=== PATIENT | male | born 1950 | race Caucasian/White ===

== ENCOUNTER → 2017-01-01 | Day surgery (SDC) | payer OTHER ==
[2016-12-19 11:08] VITALS: Ht 167.6 cm; Wt 95.9 kg
[~2017-01-01] VITALS: Ht 167.6 cm; Wt 95.9 kg
[~2017-01-01] MED LIST: 500ML BSS 0.3ML EPI 1:1000PF IRRIG ONE; ACETAMINOPHEN 325 MG TAB PO PRN; AMVISC PLUS 0.8ML SYRINGE INT OCU ONE; ATROPINE SULFATE 0.1 MG/ML 5ML SYR IV PRN; BSS FLUSH ONE; ENDOCOAT 0.85ML SYRINGE INT OCU ONE; EpHEDrine SULFATE INJ 50 MG/ML AMP IV PRN; EpINEphrine INJ 1MG/ML AMP 1 MG/ML AMP ONE; LACTATED RINGER'S 1000ML 500 ML IV SCH; LEVO50TA6 PO; LIDOCAINE 4% OP SOLN DROP CHARGE ONE; LIDOCAINE 4% OP SOLN DROP CHARGE OPL SCH; LIDOCAINE HCL 1% MPF 2 ML VIAL ONE; MIDAZOLAM HCL 1 MG/ML 2ML VIAL ONE; MIX: 4ML BSS 1ML EPI 1:1000 PF TOP ONE; MOXIFLOXACIN OPH SOLN PER DROP CHARGE ONE; POVIDONE-IODINE OP SOLN 30 ML BTL ONE; PROPARACAINE 0.5% OP SOLN PER DROP CHARGE OPL SCH; TOBRAMYCIN/DEXAMETHASONE OPH OINT PER APPLN CHARGE ONE; VNTHFA/IN INH; ZNT/150 PO
--- NOTE | 2017-01-01 11:14 | History & Physical Bridge - [place] ---
H&P Re-Evaluation Bridge Note: I have examined the patient, reviewed the History & Physical and in the interval since the performance of the History & Physical I have noted the following changes of clinical significance: No changes noted
[2017-01-01] MEDS: PHENYLEPHRINE HCL 2.5% OP SOLN PER DROP CHARGE OPL SCH ×3 (11:16→11:26)
[2017-01-01] MEDS: TROPICAMIDE 1% OP SOLN PER DROP CHARGE OPL SCH ×3 (11:17→11:27)
[2017-01-01] MEDS: CYCLOPENTOLATE HCL 1% OP SOLN PER DROP CHARGE OPL SCH ×3 (11:18→11:28)
[2017-01-01] MEDS: MOXIFLOXACIN OPH SOLN PER DROP CHARGE OPL SCH ×3 (11:19→11:29)
--- NOTE | 2017-01-01 12:15 | [facility] Post Operative Brief Note ---
Immediate Operative Summary Operative Date Jan 01, 2017. Pre-Operative Diagnosis Cataract Left Eye Post-Operative Diagnosis Same Procedure(s) Performed Left Cataract Phacoemulsification With Intraocular Lens Implant Surgeon Dr. Hart [employer] Operator Surgeon(s) None Estimated Blood Loss 0 Findings left cataract Specimens None Complication(s) None Disposition
--- NOTE | 2017-01-01 12:16 | [facility] Operative Report ---
Operative Report Date of Service Jan 01, 2017. Operative Report Phaco with monofocal IOL DATE OF OPERATION: 01/01/17 PREOPERATIVE DIAGNOSIS: Senile nuclear cataract, left eye POSTOPERATIVE DIAGNOSIS: Senile nuclear cataract, left eye PROCEDURE PERFORMED: Phacoemulsification with intraocular lens implantation, left eye SURGEON: Dr. Benoit Hart ANESTHESIA: Topical with 1% intracameral lidocaine and monitored anesthesia care COMPLICATIONS: None DESCRIPTION OF PROCEDURE: After positively identifying the patient both verbally and by wristband in the preoperative area, the left eye was marked as the operative eye. The patient was then brought back to the operating room by the anesthesia and nursing staff where they were given a drop of Lidocaine and betadine into the operative eye. They were then sterilely prepped and draped in the standard fashion typical for ophthalmic surgery. Steri-strips were placed along the upper eyelids to keep the lashes back, and a lid speculum was placed into the operative eye. At this point, a documented time out was performed with members of the ophthalmology, nursing, and anesthesia staffs all agreeing upon the correct patient, correct location for surgery, correct procedure, and correct type and power of intraocular lens to be implanted. The microscope was then swung into position. First, a paracentesis wound was made using a sideport blade. Then, in sequence, 1% preservative-free lidocaine followed by Endocoat viscoelastic was injected into the anterior chamber. Next , the main incision was made with a keratome blade in triplanar fashion. A sharp cystotome was introduced into the eye and used to create a tear in the anterior capsule, which was directed into a continuous curvilinear capsulorrhexis using Utrata forceps. Hydrodissection was then performed with BSS on a flat-tip cannula. Next, the phacoemulsification handpiece was introduced into the eye and used to remove the nucleus in a eczopi-dzh-lfbywhs fashion. This was done without complication and then the irrigation-aspiration handpiece was introduced into the eye and used to remove all remaining cortical and epinuclear material. Amvisc was then injected into the anterior chamber as well as into the capsular bag and using the lens injector system, an MX60 21.0 D lens, serial number [id number], and expiration date 08/2019 was injected into the capsular bag and rotated into the correct position. Next, the irrigation- aspiration handpiece was used to remove all remaining Amvisc. BSS was used to hydrate the main wound, and then BSS was injected into the paracentesis site to reach physiologic pressure and then the main wound was checked and found to be watertight. The patient was given drops of Vigamox and Tobradex ointment into the operative eye, and then the surrounding area was cleaned and dried. A clear plastic shield was placed over the eye and the patient was then sat up and taken from the operating room by the anesthesia staff having tolerated the procedure well and suffering no complications. DISPOSITION: The patient was returned to the recovery room in stable condition. I attest to the content of the Intraoperative Record and any orders documented therein. Any exceptions are noted below.
--- NOTE | 2017-01-01 12:17 | Discharge Instructions-SurgCtr ---
Discharge Instructions Date of Service Jan 01, 2017. Visit Reason for Visit: Cataract Left Eye Discharge Discharge Diagnosis / Problem: left cataract Discharge Goals Goal(s): Decrease discomfort, Improve function Activity Recommendations Activity Limitations: as noted below Anesthesia . Post Anesthesia Instructions: If you have had General Anesthesia or IV Sedation: * Do not drive today. * Resume driving when surgeon permits. * Do not make important decisions or sign legal documents today. * Call surgeon for: 1. Temperature elevations greater than 101 degrees F. 2. Uncontrollable pain. 3. Excessive bleeding. 4. Persistent nausea and vomiting. 5. Medication intolerance (nausea, vomiting or rash). * For nausea and vomiting use only clear liquids such as: tea, soda, bouillon until nausea subsides, then gradually increase diet as tolerated. * If you have any concerns or questions, call your surgeon's office. If physician is unavailable and it is an emergency, call 911 or go to the nearest emergency room. . Instructions / Follow-Up Instructions / Follow-Up ACTIVITY RECOMMENDATIONS: * Light activities. * You may walk outside, read, watch television. * You may notice redness on the white part of the eye and some blurry vision - this is normal. MEDICATIONS: Resume previous medications unless instructed otherwise by your surgeon. Start all eye drops at 2:30 pm today: * Eye drops (today): Prednisone - one drop in operative eye every 2 hours while awake Ofloxacin - one drop in operative eye every 2 hours while awake Ketorolac - one drop in operative eye 4 times daily SPECIAL CARE INSTRUCTIONS: * Tape plastic shield over eye to sleep at night. Call your doctor at with any concerns or problems. FOLLOW UP VISIT: Follow-up with Dr Hart at [facility] as scheduled. Diet Recommendations Home Diet: no limitations Procedures Procedures Performed: Left Cataract Phacoemulsification With Intraocular Lens Implant Pending Studies Studies pending at discharge: no Medical Emergencies . Who to Call and When: Medical Emergencies: If at any time you feel your situation is an emergency, please call 911 immediately. . Non-Emergent Contact Non-Emergency issues call your: Surgeon . . "Provider Documentation" section prepared by Benoit Hart.
[2017-01-01 12:18] VITALS: TEMP 37.5
--- NOTE | 2017-01-01 12:30 | Anesthesia Progress Nt - [facility] ---
Anesthesia Post Op Note Date & Time Jan 01, 2017 at 12:30 Vital Signs Pain Intensity: 0 Vital Signs Past 12 Hours Date Time Temp Pulse Resp B/P Pulse Ox O2 Delivery O2 Flow Rate FiO2 01/01/17 12:18 37.5 80 14 134/83 96 Room Air 01/01/17 11:30 36.4 77 18 153/84 96 Room Air Notes Mental Status: alert / awake / arousable, participated in evaluation Pt Amnestic to Procedure: Yes Nausea / Vomiting: adequately controlled Pain: adequately controlled Airway Patency, RR, SpO2: stable & adequate BP & HR: stable & adequate Hydration State: stable & adequate Anesthetic Complications: no major complications apparent
[2017-01-01 12:37] VITALS: BP 148/95; PULSE 72; O2SAT 95
== END | disposition home or self-care (01) ==
LOC: X.SURG 10:52
PROVIDERS: ATTEND Ophthalmology
DX: H25.12 Age-related nuclear cataract, left eye (principal); E07.9 Disorder of thyroid, unspecified; Z87.891 Personal history of nicotine dependence

== ENCOUNTER 2017-12-17 06:25 | Inpatient (IN) | payer OTHER ==
[2017-11-18 13:46] VITALS: BMI 32.0
[2017-11-18 13:48] VITALS: Ht 167.6 cm; Wt 89.3 kg
--- NOTE | 2017-11-18 14:24 | PAT Medication Instructions ---
Service Date Nov 18, 2017. Current Home Medication List Albuterol Hfa (Ventolin Hfa), 2-4 PUFFS INH Q6H PRN for Shortness of Breath Donepezil Hydrochloride (Aricept), 1 TAB PO HS Esomeprazole Magnesium (Nexium), 20 MG PO QPM Levothyroxine Sodium (Levothyroxine Sodium), 1 TAB PO QAM Lisinopril (Prinivil), 20 MG PO QPM Umeclidinium-Vilanterol (Anoro Ellipta 62.5-25 Mcg/INH), 1 PUFF INH QAM Medication Instructions For Your Scheduled Surgery - Take the following medications the morning of surgery with a sip of water: Albuterol Hfa (Ventolin Hfa), 2-4 PUFFS INH Q6H PRN for Shortness of Breath (if needed, and bring it with you to the hospital) Levothyroxine Sodium (Levothyroxine Sodium), 1 TAB PO QAM Umeclidinium-Vilanterol (Anoro Ellipta 62.5-25 Mcg/INH), 1 PUFF INH QAM - Take the following medications as scheduled the night before surgery: Albuterol Hfa (Ventolin Hfa), 2-4 PUFFS INH Q6H PRN for Shortness of Breath (if needed) Donepezil Hydrochloride (Aricept), 1 TAB PO HS Esomeprazole Magnesium (Nexium), 20 MG PO QPM Lisinopril (Prinivil), 20 MG PO QPM If you have any questions please call us at [phone] or [phone] or [phone]
--- NOTE | 2017-11-18 15:00 | DIAGNOSTIC IMAGING REPORT ---
CHEST 2 VIEWS ROUTINE CLINICAL HISTORY: pat preoperative evaluation COMPARISON STUDY: 01/14/2006 FINDINGS: Mild chronic fibrotic change left base. No evidence for acute infiltrate. Diaphragms smooth. Costophrenic angles sharp. IMPRESSION: Chronic change left base. No acute process. The above report was generated using voice recognition software. It may contain grammatical, syntax or spelling errors. Electronically signed by: Toro Dacosta M.D. 11/18/2017 2:59 PM Dictated Date/Time: 11/18/2017 2:59 PM
[2017-11-18 15:59] LABS: BASO % 0.6 %; BASO ABS # 0.04 K/uL (0-0.2); EOS % 4.4 %; EOS ABS # 0.29 K/uL (0-0.5); HEMATOCRIT 38.6 % (42-52); HEMOGLOBIN 12.9 g/dL (14.0-18.0); IG# 0.02 K/uL (0.00-0.02); LYMPH % 22.9 %; LYMPH ABS # 1.51 K/uL (1.2-3.4); MEAN CELL VOLUME 94.6 fL (80-100); MEAN CORPUSCULAR HEMOGLOBIN 31.6 pg (25-34); MEAN CORPUSCULAR HGB CONC 33.4 g/dl (32-36); MEAN PLATELET VOLUME 9.9 fL (7.4-10.4); MONO % 10.3 %; MONO ABS # 0.68 K/uL (0.11-0.59); NEUT % 61.5 %; NEUT ABS # 4.06 K/uL (1.4-6.5); PLATELET COUNT 276 K/uL (130-400); RED CELL DISTRIBUTION WIDTH CV 13.9 % (11.5-14.5); RED CELL DISTRIBUTION WIDTH SD 48.2 fL (36.4-46.3)
[2017-11-18 16:06] LABS: ALBUMIN 3.8 gm/dl (3.4-5.0); CALCIUM 9.2 mg/dl (8.5-10.1); CREATININE 1.36 mg/dl (0.60-1.40); POTASSIUM 4.5 mmol/L (3.5-5.1)
[2017-11-18 16:12] LABS: PTT PATIENT 24.6 SECONDS (21.0-31.0)
[2017-11-19 06:21] LABS: HEMOGLOBIN A1C 5.7 % (4.5-5.6)
--- NOTE | 2017-12-16 22:05 | HISTORY & PHYSICAL EXAMINATION ---
DATE OF ADMISSION: 12/17/2017 ADMISSION HISTORY AND PHYSICAL CHIEF COMPLAINT: Chronic left hip pain. HISTORY OF PRESENT ILLNESS: This is a 67-year-old male patient of Dr. Mason'sadaf complaining of chronic left hip pain, longstanding, now progressively getting worse. The patient has failed conservative treatment including anti-inflammatories and the use of a cane. The patient has increased pain with weightbearing activities and his pain does interfere with his activities of daily living. The patient did have an MRI and he does have a significant avascular necrosis in his hip joint per MRI. The patient has elected to proceed with a left total hip arthroplasty. PAST MEDICAL HISTORY: Hypertension, COPD, hemochromatosis, rheumatoid arthritis, acid reflux, and obesity. SOCIAL HISTORY: Nonsmoker, nondrinker. PAST SURGICAL HISTORY: Right hip surgery, left hand surgery, right shoulder surgery, right hand surgery. REVIEW OF SYSTEMS: The patient complains of chronic left hip pain and dysfunction. Otherwise, denies any shortness of breath, chest pain, nausea, vomiting or any joint complaints. FAMILY HISTORY: Noncontributory. MEDICATIONS: Levothyroxine 50 mcg daily, lisinopril 20 mg daily, and Aricept 10 mg daily. ALLERGIES: INCLUDES SUDAFED. PHYSICAL EXAMINATION: GENERAL: Well-developed, well-nourished 67-year-old male, in no acute distress. He is alert and oriented x3 and pleasant. HEENT: Normocephalic, atraumatic. Extraocular motions are intact. Pupils are equal and reactive to light. HEART: Regular rate and rhythm, no murmurs appreciated. LUNGS: Clear. ABDOMEN: Soft and nontender. Bowel sounds are present. EXTREMITIES: Left hip: He has pain with passive range of motion with gentle log rolling as well as internal and external rotation, passively. He has 4/5 strength with pain. NEUROLOGIC: Neurovascularly, he is intact in his left lower extremity. DIAGNOSES: Left hip avascular necrosis. He has a history of hypertension, chronic obstructive pulmonary disease, hemochromatosis, rheumatoid arthritis, acid reflux and obesity. PLAN: The patient was advised of his diagnosis. Indications, risks, benefits, postop course have all been reviewed. The patient wished to proceed with a left total hip arthroplasty. Necessary consent forms, preoperative testing clearances will be obtained.
[~2017-12-17] VITALS: Ht 167.6 cm; Wt 89.3 kg
[2017-12-17] VITALS (9 sets, daily range): BP systolic 116–191; BP diastolic 64–101; PULSE 69–88; TEMP 36.4–36.6; O2SAT 93–100
[~2017-12-17 06:25] MED LIST changes: -500ML BSS 0.3ML EPI 1:1000PF IRRIG ONE; -ACETAMINOPHEN 325 MG TAB PO PRN; +ACETAMINOPHEN 500 MG TAB PO SCH; -AMVISC PLUS 0.8ML SYRINGE INT OCU ONE; -ATROPINE SULFATE 0.1 MG/ML 5ML SYR IV PRN; -BSS FLUSH ONE; +CEFAZOLIN 2000MG IV PUSH 15 ML IV SCH; +CeleBREX 200 MG CAP PO SCH; +DEXAMETHASONE 4 MG TAB PO SCH; +DONE10TA12 PO; -ENDOCOAT 0.85ML SYRINGE INT OCU ONE; +ESOM20CA PO; -EpHEDrine SULFATE INJ 50 MG/ML AMP IV PRN; -EpINEphrine INJ 1MG/ML AMP 1 MG/ML AMP ONE; +FAMOTIDINE 20 MG TAB PO SCH; +GABAPENTIN 300 MG CAP PO SCH; +LACTATED RINGER'S 1000ML 1,000 ML IV SCH; -LIDOCAINE 4% OP SOLN DROP CHARGE ONE; -LIDOCAINE 4% OP SOLN DROP CHARGE OPL SCH; -LIDOCAINE HCL 1% MPF 2 ML VIAL ONE; +LISI20TA3 PO; +METOCLOPRAMIDE HCL 10 MG TAB PO SCH; -MIDAZOLAM HCL 1 MG/ML 2ML VIAL ONE; -MIX: 4ML BSS 1ML EPI 1:1000 PF TOP ONE; -MOXIFLOXACIN OPH SOLN PER DROP CHARGE ONE; -POVIDONE-IODINE OP SOLN 30 ML BTL ONE; -PROPARACAINE 0.5% OP SOLN PER DROP CHARGE OPL SCH; +ROPIVACAINE 5MG/ML 30 ML 150 MG, BUPIVACAINE 0.5% MPF INJ 30 ML, EpINEphrine HCL INJ 0.... INFIL SCH; -TOBRAMYCIN/DEXAMETHASONE OPH OINT PER APPLN CHARGE ONE; +UMEC1AER INH; -ZNT/150 PO
[2017-12-17] MEDS ORDERED: BUPIVACAINE 0.5 % 5 MG/1 ML PF 10ML VIAL ONE (06:26)
[2017-12-17] MEDS: TRANEXAMIC ACID INJ 1,000 MG x 2 Bags IV SCH ×4 (06:30→08:23)
[2017-12-17] MEDS ORDERED: MIDAZOLAM HCL 1 MG/ML 2ML VIAL ONE ×2 (07:14)
[2017-12-17] MEDS ORDERED: ORTHO JOINT ANESTHETIC ONE (07:22)
[2017-12-17] MEDS ORDERED: BACITRACIN 50000 UNIT VIAL ONE (07:23)
[2017-12-17] MEDS ORDERED: POVIDONE-IODINE OP SOLN 30 ML BTL ONE (07:23)
[2017-12-17] MEDS ORDERED: FENTANYL CITRATE INJ 50 MCG/1 ML 2 ML VIAL ONE (08:58)
[2017-12-17] MEDS ORDERED: EpHEDrine SULFATE INJ 50 MG/ML AMP IV PRN (09:00)
[2017-12-17] MEDS ORDERED: ATROPINE SULFATE 0.1 MG/ML 5ML SYR IV PRN (09:00)
[2017-12-17] MEDS ORDERED: ONDANSETRON INJ 2 MG/ML 2 ML VIAL IV PRN ×2 (09:00→11:30)
[2017-12-17] MEDS ORDERED: FENTANYL CITRATE INJ 50 MCG/1 ML 2 ML VIAL IV PRN (09:00)
[2017-12-17] MEDS ORDERED: PROPOFOL IV EMULSION 10 MG/ML 20 ML VIAL IV ONE (10:05)
--- NOTE | 2017-12-17 11:09 | [facility] Post Operative Brief Note ---
Immediate Operative Summary Operative Date Dec 17, 2017. Pre-Operative Diagnosis Left hip avascular necrosis,djd oa Post-Operative Diagnosis Same as preop Procedure(s) Performed Left Total Hip Arthroplasty, uncemented Surgeon Dr. Mason Remotely Piloted Vehicle Controller Surgeon(s) Zelda Colon PA-C Estimated Blood Loss 150 cc Findings Consistent with Post-Op Diagnosis Specimens A: left femoral head Drains 2 hemovac Anesthesia Type Spinal MAC Complication(s) none Disposition Disposition: Recovery Room / PACU
[2017-12-17] MEDS ORDERED: TRAMADOL HCL 50 MG TAB PO PRN (11:30)
[2017-12-17] MEDS ORDERED: BISACODYL 10 MG SUPP PR PRN (11:30)
[2017-12-17] MEDS ORDERED: TAMSULOSIN HCL 0.4 MG CAP PO PRN (11:30)
[2017-12-17] MEDS ORDERED: MAGNESIUM HYDROXIDE SUSP 30 ML UDC PO PRN (11:30)
[2017-12-17] MEDS ORDERED: ALUMINUM/MAGNESIUM/SIMETH (MAALOX MAX) 30 ML UDC PO PRN (11:30)
[2017-12-17] MEDS ORDERED: MoRPHine SULFATE 4 MG/ML 1 ML CARP\\VIAL IV PRN (11:30)
--- NOTE | 2017-12-17 12:18 | DIAGNOSTIC IMAGING REPORT ---
L PELVIS/UNILATERAL HIP 1 VIEW CLINICAL HISTORY: IN PACU - A/P PELVIS and LATERAL HIP INCLUDING ALL OF IMPLANT COMPARISON: None. DISCUSSION: Anatomic alignment status post total left hip arthroplasty. Good contact between prosthetic and underlying bone. Surgical drains are in position. Pre-existing total right hip arthroplasty. Expected soft tissue postoperative change with associated soft tissue left ranges catheter. IMPRESSION: Anatomic alignment status post total left hip arthroplasty. Pre-existing total right hip arthroplasty. The above report was generated using voice recognition software. It may contain grammatical, syntax or spelling errors. Electronically signed by: Toro Dacosta M.D. 12/17/2017 12:16 PM Dictated Date/Time: 12/17/2017 12:15 PM
--- NOTE | 2017-12-17 12:26 | Anesthesiology Progress Note ---
Anesthesia Post Op Note Date & Time Dec 17, 2017 at 12:26 Vital Signs Pain Intensity: 0 Vital Signs Past 12 Hours Date Time Temp Pulse Resp B/P (MAP) Pulse Ox O2 Delivery O2 Flow Rate FiO2 12/17/17 12:01 165/90 12/17/17 11:58 72 16 12/17/17 11:58 71 16 100 12/17/17 11:56 37.4 12/17/17 11:53 75 15 99 12/17/17 11:53 75 15 12/17/17 11:52 74 13 12/17/17 11:52 75 13 99 12/17/17 11:51 158/76 12/17/17 11:47 72 16 12/17/17 11:47 72 16 99 12/17/17 11:46 157/78 12/17/17 11:42 75 16 100 12/17/17 11:42 75 16 12/17/17 11:41 136/102 12/17/17 11:40 74 19 12/17/17 11:40 87 19 99 12/17/17 11:36 122/85 12/17/17 11:35 72 16 100 12/17/17 11:35 72 16 12/17/17 11:31 159/102 12/17/17 11:30 75 17 100 12/17/17 11:30 77 17 12/17/17 11:26 140/88 12/17/17 11:25 37.5 77 16 140/88 100 Nasal Cannula 2 12/17/17 06:57 36.6 75 20 191/101 96 Room Air Notes Mental Status: alert / awake / arousable, participated in evaluation Pt Amnestic to Procedure: Yes Nausea / Vomiting: adequately controlled Pain: adequately controlled Airway Patency, RR, SpO2: stable & adequate BP & HR: stable & adequate Hydration State: stable & adequate Anesthetic Complications: no major complications apparent
[2017-12-17] MEDS ORDERED: ALBUTEROL HFA 8 GM INHALER INH PRN (13:00)
[2017-12-17] MEDS: D5W AND 1/2NSS + 20MEQ KCL 1,000 ML IV SCH ×2 (14:01→23:08)
[2017-12-17] MEDS: ACETAMINOPHEN 500 MG TAB PO SCH ×2 (14:02→21:20)
[2017-12-17] MEDS: CEFAZOLIN IV 2,000 MG in SYRINGE 0 ML IV SCH (17:06)
[2017-12-17] MEDS: FERROUS GLUCONATE 324 MG TAB PO SCH (17:45)
--- NOTE | 2017-12-17 21:05 | OPERATIVE REPORT ---
DATE OF OPERATION: 12/17/2017 INDICATION FOR PROCEDURE: The patient is a 67-year-old male who presents with unremitting pain, left hip. History of a right hip replacement in the past. Left hip, he has moderately severe osteoarthritis of the hip. He failed conservative management. He did have an MRI which suggested AVN and arthritis. The patient has failed conservative management and now presents for hip replacement. PREOPERATIVE DIAGNOSIS: Left hip osteoarthritis and probable avascular necrosis. POSTOPERATIVE DIAGNOSIS: Advanced osteoarthritis, not clearly avascular necrosis. PROCEDURE: Left total hip arthroplasty. SURGEON: Keith Mason MD. WAGON DRILL OPERATOR: MOSHE Tate. ANESTHESIA: Spinal sedation. OPERATIVE PROCEDURE: The patient was taken to the operating room, anesthetized under sedation and spinal anesthetic. He was placed supine on the operating room table. He was placed on a sacral pad. We placed a lumbar support under his lumbar spine. A foot roll was placed to flex his knee 90 degrees and hip 60 degrees. That was placed in Trendelenburg to drain the pelvic veins, tilted to the right to help expose the left hip. Left hip exam demonstrated that he had a mild stiffness, reasonably good range of motion. His left hip was then sterilely prepped and draped with ChloraPrep in usual sterile fashion. A Hardinge type lateral approach was performed to the hip. Skin was incised sharply. Subcutaneous flaps were elevated. The fascia nelda was divided longitudinally and gluteus lexi was split proximally. The trochanteric bursa was resected. The patient had very thin tendon of the gluteus medius which was not torn, but was tendinopathically thin. The medius muscle fibers were split between the anterior 40% and posterior 60%. The minimus fibers were identified, divided and reflected off the deep capsule which was divided down to the hip joint. There was a hip joint effusion noted. A curvilinear incision was made through the gluteus medius tendon and when it was taken down off the greater trochanter, it was very thin attachment. We went to a fairly large bare spot larger than normal bare spot so he probably had some chronic abductor tearing to some extent. The incision was carried down about 3 cm into the vastus lateralis and a muscular capsular flap was elevated off the hip joint. Hip was dislocated with flexion and external rotation utilizing a bone. Femoral neck cut was made 15 mm proximal to the lesser trochanter in neutral anteversion. Femoral head was examined and there was significant delaminating articular surface and articular wear more consistent with osteoarthritis and AVN. I did not see an obvious soft spot there with collapse. The acetabulum was then exposed by placing a blunt Hohmann retractor anteriorly, a self-retaining superior retractor impacted into the ileum and double angled inferior ischial retractor. The acetabular labrum was removed. The osteophytes were resected circumferentially with a rongeur. Soft tissue in the acetabular fossa was removed with electrocautery. Transverse acetabular ligament was resected. I used the [employer] total hip arthroplasty system using the Accolade II stem and the Trident PSL cup. First reamer was a 44 mm reamer to medialize the reaming to the inner table and then went up in sequential increments to a 54, which had appropriate fit and fill. We did a trial reduction with the trial implant which had a good fit and then that was removed and the acetabulum irrigated copiously and the final component was the 54 acetabular shell. The PSL hydroxyapatite-coated Trident shell was then impacted into the acetabulum with a good press fit and then 2 additional screws of 6.5 x 25 and 20 mm were placed in the posterior superior quadrant. Fixation was stable. The Trident X3 10 degree polyethylene insert for a 36 mm diameter head was impacted into the shell with the high wall posteriorly. Attention was taken to the femur which was exposed with flexion and external rotation. The box osteotome was used to open up the canal followed by a sole layer hand for the canal followed by sequential broaches up to a 6 stem. We did trial reduction and -5 neck length gave equal leg lengths and satisfactory soft tissue tension and stability through full range of motion including flexion, adduction, internal rotation and extension, external rotation and abduction and adduction. The trials were then removed. The canal irrigated with antibiotic solution and bacitracin. Then, the final component was impacted into position, which was the Accolade 132 degree neck angle size 6 tapered stem. That was seated with a tight pressfit and then we placed on the 36 mm Biolox ceramic femoral head with a -5 neck length. Then this was reduced to the acetabulum. Stability was verified again. Copious irrigation was performed. At this time, I did a Betadine soak while I drilled the holes in the greater trochanter for transosseous #5 FiberWire sutures that were placed for repair of the gluteus medius. We did inject the Orthomix around the acetabular component. After acetabular insertion and then further Orthomix was injected at this time into the muscles and fascia. After further irrigation, the gluteus minimus was then repaired with guoped-xz-dmckf #1 Vicryl sutures. Then, the gluteus medius was repaired with the #5 FiberWire sutures with Dominic-Evaristo suture technique. Lateral soft tissue fixation performed with fmjnbt-ff-zquyl #2 FiberWire and the vastus lateralis was repaired with ibukla-nw-hnlur #1 Vicryl. The split in the medius was repaired with cpriqc-yc-xndnn #1 Vicryl. Repair was secured through full hip range of motion. That closure was performed over 2 Hemovac drains brought out laterally. Then the vastus lateralis and gluteus lexi fascia were closed with yglaie-nz-rezje #1 Vicryl suture, subcutaneous tissue closed with interrupted 2-0 Vicryl suture. Skin closed with dio. Sterile dressings were applied. The patient tolerated the procedure well. MOSHE Tate was my volleyball assistant coach. He functioned as volleyball assistant coach through the entire procedure. He assisted in patient positioning, prepping, draping, leg positioning, soft tissue retraction and performed the subcutaneous skin closure and will participate in postoperative care of the patient. I attest to the content of the Intraoperative Record and any orders documented therein. Any exception s are noted below.
[2017-12-17] MEDS: ASPIRIN 81 MG ECTAB PO SCH (21:19)
[2017-12-17] MEDS: DOCUSATE SODIUM 100 MG CAP PO SCH (21:19)
[2017-12-17] MEDS: SENNA 8.6 MG TAB PO SCH (21:19)
[2017-12-17] MEDS: DONEPEZIL HCL 10 MG TAB PO SCH (21:20)
[2017-12-17] MEDS: LISINOPRIL 20 MG TAB PO SCH (21:20)
[2017-12-17] MEDS: OXYCODONE HCL IR 5 MG TAB (IMMEDIATE RELEASE) PO PRN (23:08)
[2017-12-18] MEDS: CEFAZOLIN IV 2,000 MG in SYRINGE 0 ML IV SCH (00:58)
[2017-12-18 03:53] VITALS: BP 127/68; PULSE 70; TEMP 36.5; O2SAT 96
[2017-12-18] MEDS: LEVOTHYROXINE 50 MCG TAB PO SCH (05:36)
[2017-12-18] MEDS: ACETAMINOPHEN 500 MG TAB PO SCH ×3 (05:36→21:22)
[2017-12-18 06:30] LABS: BASO % 0.1 %; BASO ABS # 0.01 K/uL (0-0.2); HEMATOCRIT 28.7 % (42-52); HEMOGLOBIN 9.4 g/dL (14.0-18.0); IG# 0.05 K/uL (0.00-0.02); LYMPH % 7.6 %; LYMPH ABS # 1.15 K/uL (1.2-3.4); MEAN CELL VOLUME 93.2 fL (80-100); MEAN CORPUSCULAR HEMOGLOBIN 30.5 pg (25-34); MEAN CORPUSCULAR HGB CONC 32.8 g/dl (32-36); MEAN PLATELET VOLUME 9.9 fL (7.4-10.4); MONO % 13.2 %; MONO ABS # 2.01 K/uL (0.11-0.59); NEUT % 78.8 %; NEUT ABS # 11.97 K/uL (1.4-6.5); PLATELET COUNT 230 K/uL (130-400); RED CELL DISTRIBUTION WIDTH CV 13.4 % (11.5-14.5); RED CELL DISTRIBUTION WIDTH SD 45.2 fL (36.4-46.3); WHITE BLOOD COUNT 15.19 K/uL (4.8-10.8)
[2017-12-18 06:54] LABS: CALCIUM 8.5 mg/dl (8.5-10.1); CREATININE 1.1 mg/dl (0.60-1.40); POTASSIUM 4.2 mmol/L (3.5-5.1)
[2017-12-18 06:57] VITALS: BP 127/75; PULSE 71; TEMP 36.7; O2SAT 98
--- NOTE | 2017-12-18 08:17 | Orthopedic Progress Note ---
Orthopedic Progress Note Date of Service Dec 18, 2017. Subjective Post OP Day: 1 Reports: feeling well, pain controlled w PO medications, Denies: complaints, chest pain, SOB, nausea / vomiting, light headedness, calf pain Objective calves soft nontender, N/V intact, hip located, capillary refill less than 2 sec., dressing C/D/I, A&O x3, toes mobile Date Time Temp Pulse Resp B/P (MAP) Pulse Ox O2 Delivery O2 Flow Rate FiO2 12/18/17 06:57 36.7 71 16 127/75 (92) 98 Room Air 12/18/17 03:53 36.5 70 19 127/68 (87) 96 Room Air 12/17/17 23:21 36.6 72 18 138/73 (94) 97 Room Air 12/17/17 23:19 Room Air 12/17/17 20:05 36.5 74 18 116/64 (81) 97 Room Air 12/17/17 15:25 93 Room Air 12/17/17 15:10 36.4 88 16 135/77 (96) 99 Nasal Cannula 1.0 12/17/17 14:23 76 16 135/80 (98) 12/17/17 13:16 36.4 73 16 169/89 (115) 100 Nasal Cannula 2.0 12/17/17 12:38 36.5 72 16 163/89 (113) 100 Nasal Cannula 2.0 12/17/17 12:10 36.5 69 18 164/80 (108) 100 Nasal Cannula 2.0 12/17/17 12:10 100 Nasal Cannula 2.0 12/17/17 12:10 100 Nasal Cannula 2.0 12/17/17 12:01 165/90 12/17/17 11:58 72 16 12/17/17 11:58 71 16 100 12/17/17 11:56 37.4 12/17/17 11:53 75 15 99 12/17/17 11:53 75 15 12/17/17 11:52 74 13 12/17/17 11:52 75 13 99 12/17/17 11:51 158/76 12/17/17 11:47 72 16 12/17/17 11:47 72 16 99 12/17/17 11:46 157/78 12/17/17 11:42 75 16 100 12/17/17 11:42 75 16 12/17/17 11:41 136/102 12/17/17 11:40 74 19 12/17/17 11:40 87 19 99 12/17/17 11:36 122/85 12/17/17 11:35 72 16 100 12/17/17 11:35 72 16 12/17/17 11:31 159/102 12/17/17 11:30 75 17 100 12/17/17 11:30 77 17 12/17/17 11:26 140/88 12/17/17 11:25 37.5 77 16 140/88 100 Nasal Cannula 2 Laboratory Results 24 Hours: Test 12/18/17 05:43 White Blood Count 15.19 K/uL Red Blood Count 3.08 M/uL Hemoglobin 9.4 g/dL Hematocrit 28.7 % Mean Corpuscular Volume 93.2 fL Mean Corpuscular Hemoglobin 30.5 pg Mean Corpuscular Hemoglobin Concent 32.8 g/dl Platelet Count 230 K/uL Mean Platelet Volume 9.9 fL Neutrophils (%) (Auto) 78.8 % Lymphocytes (%) (Auto) 7.6 % Monocytes (%) (Auto) 13.2 % Eosinophils (%) (Auto) 0.0 % Basophils (%) (Auto) 0.1 % Neutrophils # (Auto) 11.97 K/uL Lymphocytes # (Auto) 1.15 K/uL Monocytes # (Auto) 2.01 K/uL Eosinophils # (Auto) 0.00 K/uL Basophils # (Auto) 0.01 K/uL Assessment & Plan Assessment: POD #1, Left SANDY Plan: PT/ OT DVT proph- ASA D/C planning- Home w HH Inhouse Planning Pain Management: Ultram, Morphine, PO Tylenol, Oxy IR DVT Prophylaxis: TEDs, SCDs, ASA Discharge Planning Discharge Planning: home with home health Pain Management: Ultram, PO Tylenol, Oxy IR DVT Prophylaxis: TEDs, ASA Therapy: Physical Therapy, Occupational Therapy
[2017-12-18] MEDS: FERROUS GLUCONATE 324 MG TAB PO SCH ×3 (08:30→17:30)
--- NOTE | 2017-12-18 08:40 | Clinical Documentation Query ---
CLINICAL DOCUMENTATION QUERY Dr. WALKER, In your clinical opinion is this patient being managed for: (x ) Acute blood loss anemia ( ) Not Agree ( ) Other explanation of clinical findings (Please Explain) ( ) Unable to determine (Please Define) ( ) Need to Discuss The medical record reflects the following clinical findings, treatment, and risk factors. Clinical Indicators: 67 yo male presenting with L hip osteoarthritis and probable avascular necrosis. Baseline Hgb 12.9/Hct 38.6, dropping to Hgb 9.4/Hct 28.7. EBL of 150 cc with additional hemovac drainage of 300 cc thus far Treatment: monitor CBC's, IV fluids Risk Factors: surgical blood loss with hemovac drainage Please clarify and document your clinical opinion in the progress notes and discharge summary. Terms such as "probable", "suspected", "likely", "questionable", "possible", or "still to be ruled out" are acceptable. IF IN AGREEMENT, YOU MUST DOCUMENT ABOVE DIAGNOSTIC STATEMENT IN DAILY PROGRESS NOTES AND DISCHARGE SUMMARY. This document is not part of the patient's record. Thank You, Laly Dunham RN [phone]
[2017-12-18] MEDS: ASPIRIN 81 MG ECTAB PO SCH ×2 (08:45→21:20)
[2017-12-18] MEDS: OXYCODONE HCL IR 5 MG TAB (IMMEDIATE RELEASE) PO PRN ×2 (08:45→21:21)
[2017-12-18] MEDS: PANTOprazole SOD 40 MG TAB PO SCH (08:46)
[2017-12-18] MEDS: MULTIVITAMIN TAB PO SCH (08:46)
[2017-12-18] MEDS: DOCUSATE SODIUM 100 MG CAP PO SCH ×2 (08:46→21:21)
[2017-12-18] MEDS: D5W AND 1/2NSS + 20MEQ KCL 1,000 ML IV SCH (08:47)
--- NOTE | 2017-12-18 09:53 | Anesthesiology Progress Note ---
Anesthesia Post Op Note Date & Time Dec 18, 2017 at 09:52 Vital Signs Vital Signs Past 12 Hours Date Time Temp Pulse Resp B/P (MAP) Pulse Ox O2 Delivery O2 Flow Rate FiO2 12/18/17 07:15 Room Air 12/18/17 06:57 36.7 71 16 127/75 (92) 98 Room Air 12/18/17 03:53 36.5 70 19 127/68 (87) 96 Room Air 12/17/17 23:21 36.6 72 18 138/73 (94) 97 Room Air 12/17/17 23:19 Room Air Notes Mental Status: alert / awake / arousable, participated in evaluation Pt Amnestic to Procedure: Yes Nausea / Vomiting: adequately controlled Pain: adequately controlled Airway Patency, RR, SpO2: stable & adequate BP & HR: stable & adequate Hydration State: stable & adequate Neuraxial Anesthesia: sensory block resolved Anesthetic Complications: no major complications apparent
[2017-12-18 10:58] VITALS: BP 141/74; PULSE 73; TEMP 37; O2SAT 98
[2017-12-18 15:30] VITALS: BP 126/74; PULSE 71; TEMP 36.7; O2SAT 98
[2017-12-18 21:18] VITALS: BP 134/73; PULSE 84
[2017-12-18] MEDS: LISINOPRIL 20 MG TAB PO SCH (21:19)
[2017-12-18] MEDS: SENNA 8.6 MG TAB PO SCH (21:20)
[2017-12-18] MEDS: DONEPEZIL HCL 10 MG TAB PO SCH (21:21)
[2017-12-18 23:30] VITALS: BP 148/75; PULSE 89; TEMP 36.7; O2SAT 95
[2017-12-19] MEDS: LEVOTHYROXINE 50 MCG TAB PO SCH (05:59)
[2017-12-19] MEDS: ACETAMINOPHEN 500 MG TAB PO SCH (06:00)
[2017-12-19 06:04] VITALS: BP 144/74; PULSE 85; TEMP 36.8; O2SAT 96
[2017-12-19] MEDS: FERROUS GLUCONATE 324 MG TAB PO SCH (07:07)
[2017-12-19] MEDS: ASPIRIN 81 MG ECTAB PO SCH (07:17)
[2017-12-19] MEDS: PANTOprazole SOD 40 MG TAB PO SCH (07:17)
[2017-12-19] MEDS: DOCUSATE SODIUM 100 MG CAP PO SCH (07:17)
[2017-12-19] MEDS: MULTIVITAMIN TAB PO SCH (07:17)
[2017-12-19 07:45] VITALS: BP 132/62; PULSE 86; TEMP 36.8; O2SAT 98
[2017-12-19] MEDS ORDERED: ACET-24 PO (08:04)
[2017-12-19] MEDS ORDERED: ASPEC81 PO (08:04)
[2017-12-19] MEDS ORDERED: RXC5 PO (08:04)
--- NOTE | 2017-12-19 08:12 | Discharge Instructions ---
Discharge Instructions Date of Service Dec 19, 2017. Admission Reason for Admission: Left Hip Avascular Necrosis Discharge Discharge Diagnosis / Problem: Left Hip Avascular Necrosis Discharge Goals Goal(s): Decrease discomfort, Improve function, Increase independence Activity Recommendations Activity Limitations: per Instructions/Follow-up section Weightbearing Status: Left weightbearing (as tolerated) . Instructions / Follow-Up Instructions / Follow-Up ACTIVITY RECOMMENDATIONS: SELF CARE INSTRUCTIONS AFTER TOTAL HIP REPLACEMENT Until the incision and soft tissues around your hip have healed, there is a possibility that the hip prosthesis could dislocate. A. Observe the following precautions to prevent dislocation: 1. Don't bend your hip greater than 90 degrees. 2. Avoid crossing your legs or ankles while standing or lying. 3. Sit with your feet placed 6 inches apart. 4. When sitting, keep your knees below your hips. Sit on a firm surface, avoid deep, soft chairs and couches. Use an elevated toilet seat in the bathroom. 5. Don't bend over at the waist. Use a long handled shoehorn and a sock aid to help you put on your shoes and socks. A electronics technology instructor can help you mushroom picker objects that are too high or too low to reach. 6. Keep car riding to a minimum for at least one month after surgery. B. Your balance may be shaky for a while. Use crutches or a walker until directed by your doctor. C. Use hand rails when walking on stairs. D. Wear low heeled shoes with non-slip soles. E. Be sure that your floors are free of things that could trip you - throw rugs , electrical cords, small objects. Avoid wet and waxed floors, especially with crutches and canes. F. Try to walk several times a day with rest periods between. G. Continue with all the exercises taught to you in the hospital. Again, make walking a part of your daily routine. SPECIAL CARE INSTRUCTIONS: VERY IMPORTANT TO READ AND REVIEW A. You may still be at risk for phlebitis and blood clots. 1. Wear surgical stockings (JUSTINO hose) for 2 weeks after surgery to improve circulation and reduce swelling. 2. Take Aspirin 81mg twice daily for 4 weeks or as directed by your doctor. This is your blood thinner. 3. High risk patients may be prescribed a stronger blood thinner if necessary. 4. If you are on Coumadin normally, your family doctor/manager of marketing should monitor your blood work. Expect a phone call the day of or the day after bloodwork is drawn to adjust your dosage. B. You must take antibiotics before having dental work, bladder, bowel and other surgery. Your doctor will provide you with a permanent card to carry describing precautions. C. Call [facility] if you have a fever, redness or swelling around the incision, cloudy drainage from incision, or sudden increase in pain in your hip, not relieved by your regular pain medication. D. Please call the office at if you have any concerns or questions about your operation or recovery. * YOU MAY SHOWER, NO TUB BATHS UNTIL CLEARED BY YOUR DOCTOR. * WEAR JUSTINO HOSE 20 HOURS PER DAY FOR 2 WEEKS. * YOU SHOULD USE A WALKER OR CRUTCHES FOR 2-4 WEEKS. THIS WILL HELP PREVENT STRAIN ON YOUR HIP MUSCLE AND ALLOW IT TO HEAL PROPERLY. YOU MAY WEAN TO A CANE TOLERATED. * MOST PATIENTS WILL HAVE HOME NURSING FOR THERAPY. IF YOU DECIDE TO DO OUTPATIENT PHYSICAL THERAPY, PLEASE SCHEDULE THIS 3 TIMES PER WEEK. * CHANGE YOUR DRESSING DAILY. IF THE WOUND REMAINS DRY, YOU MAY LEAVE IT TO THE OPEN AIR. SOMETIMES THE BAM CAN CATCH ON YOUR CLOTHING. IN THAT CASE, KEEP THE WOUND COVERED TO PROTECT IT. . FOLLOW UP VISIT: If appointment is not already scheduled: Please call [facility] to make a follow-up appointment for 2 weeks after your surgery at . Current Hospital Diet Patient's current hospital diet: Regular Diet Discharge Diet Recommended Diet: Regular Diet Procedures Procedures Performed: Left Total Hip Arthroplasty, uncemented Pending Studies Studies pending at discharge: no Laboratory Results Hemoglobin A1c Test 11/18/17 14:35 Range/Units Estimated Average Glucose 117 mg/dl Hemoglobin A1c 5.7 H 4.5-5.6 % Medical Emergencies . Who to Call and When: Medical Emergencies: If at any time you feel your situation is an emergency, please call 911 immediately. . Non-Emergent Contact Non-Emergency issues call your: Surgeon Call Non-Emergent contact if: temperature is above 101.5, your pain is not controlled, your pain is worsening, wound has increased drainage, wound has increased redness . "Provider Documentation" section prepared by Jayme Colon. . [place] Drug Monitoring Program Search Results: patient reviewed within database, no issues identified
[2017-12-19 08:13] VITALS: O2SAT 98
--- NOTE | 2017-12-19 08:23 | Orthopedic Progress Note ---
Orthopedic Progress Note Date of Service Dec 19, 2017. Subjective Post OP Day: 2 Reports: feeling well, pain controlled w PO medications, Denies: complaints, chest pain, SOB, nausea / vomiting, light headedness, calf pain Objective calves soft nontender, N/V intact, hip located, capillary refill less than 2 sec., dressing C/D/I, A&O x3, toes mobile Date Time Temp Pulse Resp B/P (MAP) Pulse Ox O2 Delivery O2 Flow Rate FiO2 12/19/17 08:13 98 Room Air 12/19/17 07:45 36.8 86 22 132/62 (85) 98 Room Air 12/19/17 07:10 Room Air 12/19/17 06:04 36.8 85 20 144/74 (97) 96 Room Air 12/19/17 00:22 Room Air 12/18/17 23:30 36.7 89 18 148/75 (99) 95 Room Air 12/18/17 21:18 84 134/73 (93) 12/18/17 15:45 Room Air 12/18/17 15:30 36.7 71 18 126/74 (91) 98 Room Air 12/18/17 10:58 37.0 73 16 141/74 (96) 98 Room Air Assessment & Plan Assessment: POD #2, Left SANDY Plan: PT/ OT DVT proph- ASA D/C planning- Home w HH TODAY Inhouse Planning Pain Management: Ultram, Morphine, PO Tylenol, Oxy IR DVT Prophylaxis: TEDs, SCDs, ASA Discharge Planning Discharge Planning: home with home health Pain Management: Ultram, PO Tylenol, Oxy IR DVT Prophylaxis: TEDs, ASA Therapy: Physical Therapy, Occupational Therapy
[2017-12-19 09:14] VITALS: BP 132/62; PULSE 86; TEMP 36.8; O2SAT 98
--- NOTE | 2017-12-21 14:01 | DISCHARGE SUMMARY ---
DISCHARGE DIAGNOSIS: Avascular necrosis, left hip. SECONDARY DIAGNOSES: Hypertension, chronic obstructive pulmonary disease, hemochromatosis, rheumatoid arthritis, gastroesophageal reflux disease, and obesity. CONSULTS: None. COMPLICATIONS: None. PROCEDURES: Left total hip arthroplasty performed by Dr. Mason on 12/17/2017. BRIEF HISTORY: As dictated in the history and physical. HOSPITAL SUMMARY: The patient was admitted on the above date and had the above known surgery performed, which started well. On the first postoperative day, he was feeling well and pain was controlled. He had no complaints. Calves were soft and nontender. Neurovascularly intact. Dressings clean, dry, and intact. Toes are mobile. Vital signs stable and he was afebrile. Hemoglobin was 9.4 and he was started on physical therapy protocol and continued on DVT prophylaxis and pain management. By his second postoperative day, he was feeling well and pain was controlled. He had no complaints. Calves were soft and nontender. Neurovascularly intact. Dressings were clean, dry, and intact. Toes were mobile. Vital signs were stable. He was afebrile. The patient was progressing well with physical therapy and remaining stable and it was felt that they could be discharged to home. For further review, please see chart. LAB AND X-RAY DATA: As per chart. DISCHARGE INSTRUCTIONS: The patient was discharged to home in satisfactory condition on 12/19/2017. DIET: Regular. ACTIVITY: Weightbearing as tolerated to the left lower extremity. Follow SANDY instruction sheets and special care instructions as noted. Follow up with Dr. Mason in 2 weeks. The patient to call for appointment if one has not been made for you. DISCHARGE MEDICATIONS: Acetaminophen 1000 mg p.o. q. 8 hours for 21 days, aspirin 81 mg p.o. b.i.d. for 30 days, oxycodone 5-10 mg p.o. q. 4 hours p.r.n. Resume home meds as listed.
== END 2017-12-19 10:39 | disposition home health service (06) | DRG 470 ==
LOC: C.ACU 06:25 → C.3E 07:18 → ENRESERV 11:48
PROVIDERS: ADMIT Orthopaedic Surgery Sports Medicine; ATTEND Orthopaedic Surgery Sports Medicine
PROC: 0SRB04Z Replacement of Left Hip Joint with Ceramic on Polyethylene Synthetic Substitute, Open Approach (ICD-10-PCS; principal; 2017-12-17 08:30)
DX: M16.12 Unilateral primary osteoarthritis, left hip (principal); I10 Essential (primary) hypertension; J44.9 Chronic obstructive pulmonary disease, unspecified; E83.119 Hemochromatosis, unspecified; M06.9 Rheumatoid arthritis, unspecified; K21.9 Gastro-esophageal reflux disease without esophagitis; E66.9 Obesity, unspecified; Z88.8 Allergy status to other drugs, medicaments and biological substances; Z68.31 Body mass index [BMI] 31.0-31.9, adult; Z96.641 Presence of right artificial hip joint

== ENCOUNTER 2022-07-22 11:24 | Observation (INO) ==
--- NOTE | 2022-06-28 12:48 | Anesthesiology Consultation ---
Date of Service June 28, 2022 Assessment & Plan (1) Encounter for pre-operative examination: Chart Review Chart Review: Acceptable Risk for Surgery and Patient NOT seen in Pre Admission Testing Consults Requested none History Surgery Operation Date: 07/18/22 14:00 Proposed Procedures p Left Reversed Total Shoulder Arthroplasty - Keith Mason MD Operation Date: 07/22/22 11:15 Proposed Procedures p Left Reversed Total Shoulder Arthroplasty - Keith Mason MD Height/Weight Height: 5 ft 6 in Weight: 99.79 kg Allergies Allergy/AdvReac Type Severity Reaction Status Date / Time adhesive Allergy Unknown Skin Verified 06/28/22 07:34 tearing pseudoephedrine AdvReac Unknown Passed out Verified 06/28/22 07:34 Medications Home Medications Medication Instructions Recorded Confirmed Last Taken esomeprazole magnesium 20 mg 20 mg PO HS 08/11/19 06/28/22 Unknown capsule,delayed release (Nexium 24HR) triamcinolone acetonide 0.1 % 1 appln topical BID PRN itch #454 11/04/19 06/28/22 Unknown topical cream grams naproxen sodium 220 mg tablet 440 mg PO HS PRN pain 05/23/20 06/28/22 Unknown (Aleve) folic acid 1 mg tablet 1 mg PO HS 05/27/22 06/28/22 Unknown levothyroxine 50 mcg tablet 50 mcg PO QAM 05/27/22 06/28/22 Unknown (Synthroid) lisinopril 20 mg tablet 20 mg PO HS 05/27/22 06/28/22 Unknown methotrexate sodium 2.5 mg tablet 15 mg PO Q7D 05/27/22 06/28/22 Unknown Past Medical History Medical History Benign essential hypertension Chronic GERD COPD, mild Well controlled Hemochromatosis Intermittent theurapeutic phlebotomy (monthly) [facility] Hypercholesterolemia Hypothyroidism Rheumatoid arthritis MTX weekly Past Family History Family History Father Alcoholism Mother Breast cancer Past Surgical History Surgical History History of hand surgery R/L History of hip surgery R/L Left SANDY (12/17/17): SAB at L2/3 at [facility]. No issues noted per post-op anesthesia progress note. History of shoulder surgery RIGHT History of tooth extraction Social History Smoking Status: Former smoker tobacco type: cigarettes Do You Dip or Chew Tobacco: No Smoking End Date: 20 yrs ago Hx Alcohol Use: No Hx Substance Use: No substance use type: does not use Lab Results Anesthesia Preop Results Results Anesthesia Widget: WBC 7.26 K/ul (4.8-10.8) 06/24/22 Hgb 13.9 g/dl (14.0-18.0) L 06/24/22 Hct 41.6 % (40.1-51.0) 06/24/22 Plt 219 K/uL (130-400) 06/24/22 Na 137 mmol/L (136-145) 06/24/22 K 4.3 mmol/L (3.5-5.1) 06/24/22 Cl 104 mmol/L (98-107) 06/24/22 CO2 28 mmol/L (21-32) 06/24/22 BUN 18 mg/dl (6-23) 06/24/22 Creat 1.27 mg/dl (0.6-1.4) 06/24/22 Glucose Level 145 mg/dl (70-99(Fasting)) H 06/24/22 PT 10.8 Seconds (9.0-12.0) 06/24/22 PTT 26.5 Seconds (21.0-31.0) 06/24/22 INR 1.0 (0.9-1.1) 06/24/22 HA1c 6.2 % (4.5-5.6) H 06/24/22 Testing Electrocardiogram Date: 03/22/22 Normal sinus rhythm, rate 77 bon When compared with ECG of 18-NOV-2017 14:43, No significant change was found Confirmed by Pawan Newell ([id number]) on 03/22/2022 2:39:32 PM Chest X-Ray Date: 03/22/22 Findings: + NAD Echocardiogram Date: 04/04/22 EF is 60-64% RV cavity size is normal RV systolic function is normal Mild AV regurgitation Mild TR Mild pulmonary hypertension Cervical Spine Date: 03/22/22 FINDINGS: No fractures or subluxations are identified. Degenerative changes are noted in the cervical spine. The alignment is anatomic Prevertebral soft tissues are within normal limits. IMPRESSION: Degenerative changes without evidence of acute abnormality.
--- NOTE | 2022-07-20 07:32 | History & Physical Report ---
Date of Service July 20, 2022 Assessment & Plan (1) Rotator cuff arthropathy of left shoulder: Plan: Treatment options discussed with the patient. He has failed conservative measures. He has a large retracted rotator cuff tear. He would like to proceed with surgical intervention. Risks, benefits and alternatives to surgery including but not limited to infection, DVT, pain, stiffness, need for revision surgery, damage to blood vessels, damage to nerves, PE, , were discussed with the patient and they wish to proceed. Plan on left reverse total shoulder arthroplasty scheduled for [facility] on 07/22/[address] Mason. All questions answered. He will follow-up postop. History of Present Illness Chief Complaint: Left shoulder pain Primary Care Provider: Max Pagan MD 72-year-old male with past medical history significant for COPD, hypothyroidism, Rheumatoid arthritis, hemochromatosis who presents with ongoing left shoulder pain. Pain is interfering with his daily activities. He has failed conservative measures. He would like to proceed with surgical intervention. Patient denies headaches, sweats, fevers, chills, double vision, blurred vision, cough, sore throat, dysphagia, chest pain, sob, wheezing, n/v/d/c, numbness, tingling, fatigue, urinary symptoms, mood disorders. ROS positive for Left shoulder pain and stiffness Allergies Allergy/AdvReac Type Severity Reaction Status Date / Time adhesive Allergy Unknown Skin Verified 06/28/22 07:34 tearing pseudoephedrine AdvReac Unknown Passed out Verified 06/28/22 07:34 Home Medications Medication Instructions Recorded Confirmed Type esomeprazole magnesium 20 mg 20 mg PO HS 08/11/19 06/28/22 History capsule,delayed release (Nexium 24HR) triamcinolone acetonide 0.1 % 1 appln topical BID PRN itch #454 11/04/19 06/28/22 Rx topical cream grams naproxen sodium 220 mg tablet 440 mg PO HS PRN pain 05/23/20 06/28/22 History (Aleve) folic acid 1 mg tablet 1 mg PO HS 05/27/22 06/28/22 History levothyroxine 50 mcg tablet 50 mcg PO QAM 05/27/22 06/28/22 History (Synthroid) lisinopril 20 mg tablet 20 mg PO HS 05/27/22 06/28/22 History methotrexate sodium 2.5 mg tablet 15 mg PO Q7D 05/27/22 06/28/22 History Past Med/Surg History Medical History Benign essential hypertension Chronic GERD COPD, mild Well controlled Hemochromatosis Intermittent theurapeutic phlebotomy (monthly) [facility] Hypercholesterolemia Hypothyroidism Rheumatoid arthritis MTX weekly Surgical History History of hand surgery R/L History of hip surgery R/L Left SANDY (12/17/17): SAB at L2/[address] [facility]. No issues noted per post-op anesthesia progress note. History of shoulder surgery RIGHT History of tooth extraction Family History Father Alcoholism Mother Breast cancer Social History Smoking Status: Former smoker Age Started Using Tobacco: 8; Number of Years Since Quit: 20; Second Hand Exposure: No; Hx Alcohol Use: No Hx Substance Use: No Preferred Language: Russian Communication Ability: Effective Visual Impairment: Blindness Hearing Ability: Use of Hearing Aid Assembly Line Inspector Required: No Beliefs That Will Affect Care: None marital status: Current Living Situation: Spouse Current Living Situation Comment: lives with spouse current occupational status: retired Feels Safe at Home: Yes Childhood Exposure to Second-Hand Smoke: No caffeine: Yes Dental Care, Regularly: No Physical Activity Frequency: 3-4 Times per Week Physical Activity Frequency Comment: walking Seatbelt Use: never Sunscreen Use: No Assistive Devices: Denture - Lower and Glasses Review of Systems All systems reviewed & are unremarkable except as noted in HPI & below Physical Exam Constitutional: well developed and well nourished; no acute distress Eyes: PERRL, conjunctivae normal, anicteric sclerae ENMT: external ear and nose normal, oropharynx normal Neck: trachea midline, no thyromegaly Respiratory: normal respiratory effort, lungs clear to auscultation Cardiovascular: RRR, no murmur, no edema Musculoskeletal: Left shoulder:Crepitus with range of motion. Tenderness anterolateral acromion. Positive impingement signs. Pain with resistive abduction isolating supraspinatus and moderate weakness Isolating supraspinatus. Forward flexion to 110 degrees, abduction to 160 degrees, external rotation at 90 degrees. Skin: no rashes, warm and dry Neurologic: patellar DTR's 2+ bilat, sensation intact Psychiatric: A+Ox3, euthymic affect Results & Data ([place]) Diagnostic Findings Left shoulder MRI demonstrates Large Retracted anterior superior subscapularis tear extending into supraspinatus. There is significant atrophy of his rotator cuff.X-rays without significant arthritis. No fractures
[~2022-07-22 11:24] MED LIST changes: +BUPIVACAINE 0.5 % 5 MG/1 ML PF 10ML VIAL ONE; -CEFAZOLIN 2000MG IV PUSH 15 ML IV SCH; -DEXAMETHASONE 4 MG TAB PO SCH; -DONE10TA12 PO; -ESOM20CA PO; -LACTATED RINGER'S 1000ML 1,000 ML IV SCH; -LACTATED RINGER'S 1000ML 500 ML IV SCH; -LEVO50TA6 PO; -LISI20TA3 PO; +LR 15ML/HR IV SCH; -METOCLOPRAMIDE HCL 10 MG TAB PO SCH; +METOCLOPRAMIDE HCL 10 MG TABLET PO SCH; -ROPIVACAINE 5MG/ML 30 ML 150 MG, BUPIVACAINE 0.5% MPF INJ 30 ML, EpINEphrine HCL INJ 0.... INFIL SCH; +TRANEXAMIC ACID 1,000 MG **IV Intra-op IV SCH; +TRANEXAMIC ACID 1,000 MG **IV Pre-op IV SCH; +TRANEXAMIC ACID 1,000 MG x 1 **For Topical Use TOP SCH; -UMEC1AER INH; -VNTHFA/IN INH; +ceFAZolin 2000MG 2,000 MG/15 ML SYR IV SCH; +dexAMETHasone 4 MG TAB PO SCH
[2022-07-22] MEDS ORDERED: fentaNYL citrate 100 MCG/2 ML VIAL ONE ×2 (14:06→14:59)
[2022-07-22] MEDS ORDERED: MIDAZOLAM HCL 1 MG/ML 2ML VIAL ONE (14:07)
[2022-07-22] MEDS ORDERED: ROCURONIUM BROMIDE 10 MG/ML 5 ML VIAL IV ONE ×4 (14:15→17:36)
[2022-07-22] MEDS ORDERED: PROPOFOL IV EMULSION 10 MG/ML 20 ML VIAL IV ONE (14:15)
[2022-07-22] MEDS ORDERED: ONDANSETRON INJ 2 MG/ML 2 ML VIAL ONE (14:15)
[2022-07-22] MEDS ORDERED: LIDOCAINE 2% MPF LOCAL 5 ML VIAL INFIL ONE (14:15)
--- NOTE | 2022-07-22 14:21 | History & Physical Bridge Note ---
Date of Service July 22, 2022 History & Physical Bridge Note I have examined the patient, reviewed the History & Physical and in the interval since the performance of the History & Physical I have noted the following changes of clinical significance: no changes noted
[2022-07-22] MEDS ORDERED: ALBUTEROL HFA INHALER 8.5 GM ONE (14:51)
[2022-07-22] MEDS ORDERED: PHENYLEPHRINE 100MCG/ML 5ML SYR ONE (15:15)
[2022-07-22] MEDS ORDERED: DEXAMETHASONE SOD INJ 4 MG/ML VIAL ONE (15:26)
--- NOTE | 2022-07-22 17:46 | Operative Report ---
Post Operative Report Pre & Post Diagnosis Operation Date: 07/18/22 14:00 <No data on this case meets the specified criteria> Operation Date: 07/22/22 14:05 Pre-Op Diagnosis: Rotator Cuff Arthropathy of Left Shoulder, irreparable rotator cuff tear Post-Op Diagnosis: Rotator Cuff Arthropathy of Left Shoulder, irreparable rotator cuff tear, biceps dislocation, biceps tendinopathy. I identified the patient and participated in the time-out.: Yes Procedure Operation Date: 07/18/22 14:00 <No data on this case meets the specified criteria> Operation Date: 07/22/22 14:05 Actual Procedures p Left Reverse Total Shoulder Arthroplasty(Left), biceps tenodesis.- Keith Mason MD Surgeon Keith Mason MD Crosscutter Curtis MESA Estimated Blood Loss 200 Findings Consistent with Post-Op Diagnosis Specimens Humeral head Drains 2 Hemovac Anesthesia Type General Regional Complications none Disposition Disposition: Recovery Room Indications 72-year-old male chronic left shoulder pain weakness failed conservative management. X-rays demonstrate some hypertrophic AC joint osteoarthritis and maintained glenohumeral joint space however MRI demonstrates a large superior subscapularis tendon tear extending into the supraspinatus and infraspinatus with retraction and chronic atrophy of the supraspinatus and upper subscapul ruy. Description of Procedure The patient was taken to the operating room and anesthetized under regional block and general anesthetic. The patient was positioned on the operating table in a 30 beach chair position with a towel roll under the medial border of the left scapula. The arm was draped free to be able to manipulate the shoulder as needed. The left upper extremity was prepped and draped in usual sterile fashion. Exam demonstrated moderate obesity with passive range of motion 130 degrees forward flexion 70 degrees abduction and 30 degrees external rotation. An anterior deltopectoral approach was performed. A longitudinal incision was made in the deltopectoral interval. The skin was incised sharply. Subcutaneous flaps were elevated off the fascia. The cephalic vein was dissected out and retracted lateral with the deltoid. The clavipectoral fascia was divided at the lateral margin of the conjoined tendon and extended up to the CA ligament. The following findings were noted: There was fluid collection on biceps tendon. Biceps tendon was subluxed under a tear of the superior subscapularis tendon which was retracted medially. The intact subscapularis tendon tissue was thin and had tendinopathy and was poor tissue. The supraspinatus was completely torn and retracted infraspinatus tendon was completely torn and retracted the teres minor was intact but thin tissue. There were degenerative changes at the superior humeral head from impingement and the main articular surface of the glenohumeral joint was intact. Biceps tendon had widening and tendinopathy in the intra-articular area.. The upper centimeter of the pectoralis was released for inferior exposure. A self-retaining retractor was placed. A thorough tenosynovectomy was performed around the biceps tendon from the pectoralis up to the bicipital groove area. The biceps tendon was then tenodesed to the pectoralis tendon with #2 FiberWire. The proximal biceps was resected. The subscapularis muscle fibers were split longitudinally at the level of the circumflex vessels where the lower portion of the subscapularis was still intact. The circumflex vessels were identified and tied off with silk ties and divided laterally. A Kitner elevator was used to free up the inferior fibers of the subscapularis off of the capsule. The axillary nerve was identified with a tug test and protected with a blunt Derek retractor between the nerve and the capsule. The remainder of the intact subscapularis tendon was then taken down off of the lesser tuberosity subperiosteally, a Vicryl traction suture was placed and a subperiosteal dissection was performed along the neck of the humerus as the arm was gradually externally rotated exposing the humeral head. A Gee elevator was used to assist in releasing the capsule of the neck of the humerus. The capsule was divided with Conrad scissors down to the glenoid released off the anterior glenoid and the rotator interval was released to meet the capsular release and a 360 release of the subscapularis was accomplished. A Fukuda retractor was placed into the joint retracting the humeral head posterior. Glenoid findings demonstrated intact articular surface and labrum. The labrum and remainder of intra-articular biceps tendon was resected. an anterior-inferior and posterior inferior capsular release were performed with electrocautery and a Gee elevator on bone with the axillary nerve protected inferiorly by the retractor. Attention was then taken to the humeral preparation. The cutting guide was placed into the humeral head. It was positioned at 20 of retroversion. Oscillating saw was used to resect the humeral head giving the cut above the level of the posterior rotator cuff insertion site. The humerus was then prepared for the stem. I used the ascend flex stem from [employer]. The sizing broaches were used followed by trial broaches up to a size 5B long which had the appropriate fit and fill. The appropriate sized cut protector was placed. The humerus was then retracted posterior to the glenoid. The glenoid was sized for a 25 mm baseplate. The guide for the baseplate was positioned in a 10 inferior tilt and the central drill hole was made. The reamer for the 25 mm baseplate was used. The central drill was widened for the peg. The Tornier aequalis hydroxyapatite-coated 25 mm baseplate was impacted into position. The base plate was transfixed with superior and inferior locking screws and anterior and posterior compression screws with stable fixation. The fan reamer was used for the 36 millimeter glenoid sphere. After irrigation the 36 mm +2 eccentric offset glenoid sphere was impacted onto the baseplate with the offset inferior and the security screw was tightened. Attention was taken back to the humerus. The cut protector was removed and the +0 high offset humeral tray trial was assembled to the trial stem rotated appropriately to get bony coverage and then screwed in position. A trial reduction was performed. A 36+6 reversed trial insert demonstrated good stability and no shuck. The trials were removed. 3 drill holes are made into the harder bone in the bicipital groove area and 3 #5 FiberWire sutures were placed transosseously. The canal was irrigated with pulsatile saline solution. The final component was assembled. The final component was ascend flex 5B long humeral stem assembled to +0 high offset humeral tray and a 36+6 reversed polyethylene insert. this was then impacted into the humerus with a tight press-fit. It was reduced to the glenoid sphere. Stability was verified. Subscapularis was repaired with the #5 FiberWire sutures using Dominic-Evaristo suture technique. Lateral row soft tissue repair was performed with #2 FiberWire [id number] sutures. The pectoralis was repaired with #2 FiberWire [id number] sutures reinforcing the biceps tendon tenodesis. The arm was taken through a range of motion which demonstrated 130 degrees forward flexion 90 degrees abduction and and 45 degrees external rotation without any tension on the subscapularis repair. The implant was stable through the range of motion tested. The wound was copiously irrigated. 2 Hemovac drains were placed. The deltopectoral interval was closed with [id number] #1 Vicryl sutures. The subcutaneous tissues were closed with 2- 0 Vicryl sutures. The skin was closed with dio . Sterile dressings were applied and a shoulder immobilizer. Curtis MESA, my physician carpenter assistant acted as certified physical therapist assistant throughout the procedure .He performed functions including patient positioning, arm positioning, prepping and draping, soft tissue retraction, instrument management, suture management and performed the subcutaneous and skin closure and will participate in the postoperative care of the patient. I attest to the content of the Intraoperative Record and any orders documented therein. Any exceptions are noted below.
--- NOTE | 2022-07-22 18:22 | Anesthesiology Progress Note ---
Date of Service July 22, 2022 Anesthesia Post Procedure Vital Signs Vital Signs: Temp Pulse Pulse Resp BP Pulse Ox O2 Del Method 07/22/22 18:10 98 H 17 97/71 L 96 Nasal Cannula 07/22/22 18:00 99 H 18 100/72 96 Oxymask 07/22/22 17:50 36.0 C L 96 H 15 128/75 94 Oxymask 07/22/22 12:09 36.6 C 76 20 198/100 H 97 Room Air O2 Flow Rate 07/22/22 18:10 2 07/22/22 18:00 6 07/22/22 17:50 6 07/22/22 12:09 Pain Intensity Left Shoulder: Pain Intensity: 5 Transfer of Care Handoff Completed per policy Notes Mental Status: alert / awake / arousable Patient Amnestic to Procedure: Yes Nausea / Vomiting: adequately controlled Pain: adequately controlled Airway Patency, RR, SpO2: stable & adequate BP & HR: stable & adequate Hydration State: stable & adequate Anesthetic Complications: no major complications apparent
--- NOTE | 2022-07-22 18:24 | XRay Report ---
LEFT SHOULDER 2 VIEWS CLINICAL HISTORY: Postoperative examination FINDINGS: 2 portable views of the left shoulder are obtained. The skeletal structures are osteopenic. A left Shoulder arthroplasty is in near anatomic alignment. No fracture is seen. Productive degenera tive change is noted at the acromioclavicular joint. Skin clips, a surgical drain, soft tissue swelli ng, and subcutaneous gas overlying the left shoulder are expected postoperative changes. The left siri g parenchyma is clear as imaged noting basilar atelectasis. IMPRESSION: Expected postoperative findings status post left shoulder arthroplasty. No acute fracture is seen. Electronically signed by: Max Acosta M.D. 07/22/2022 6:23 PM
[2022-07-22] MEDS ORDERED: INFLUENZA VACCINE HIGH DOSE PF 65+ 0.7 ML SYR IM ONE (18:43)
[2022-07-22] MEDS ORDERED: bisacodyL 10 MG SUPP PR PRN (18:44)
[2022-07-22] MEDS ORDERED: METOCLOPRAMIDE HCL INJ 5 MG/ML 2 ML VIAL IV PRN (18:44)
[2022-07-22] MEDS ORDERED: ONDANSETRON INJ 2 MG/ML 2 ML VIAL IV PRN (18:44)
[2022-07-22] MEDS ORDERED: TRIAMCINOLONE ACET 0.1% CR 15 GM TUBE TOP PRN (18:44)
[2022-07-22] MEDS ORDERED: NALOXONE HCL 0.4 MG/1 ML VIAL/CARP IV PRN (18:44)
[2022-07-22] MEDS ORDERED: MAGNESIUM HYDROXIDE SUSP 30 ML UDC PO PRN (18:44)
[2022-07-22] MEDS ORDERED: HYDROmorphone HCL 2 MG TAB PO PRN (18:44)
[2022-07-22] MEDS: SODIUM CHLORIDE 0.9% 1000ML 1,000 ML IV SCH (18:49)
[2022-07-22] MEDS: DOCUSATE SODIUM 100 MG CAP PO SCH (20:50)
[2022-07-22] MEDS: ACETAMINOPHEN 500 MG TAB PO SCH (20:51)
[2022-07-22] MEDS ORDERED: FOLIC ACID 1 MG TAB PO SCH (21:00)
[2022-07-22] MEDS ORDERED: PANTOprazole 40 MG TAB PO SCH (21:00)
[2022-07-22] MEDS ORDERED: SENNA 8.6 MG TAB PO SCH (21:00)
[2022-07-22] MEDS: ceFAZolin 2000MG 2,000 MG/15 ML SYR IV SCH (23:18)
[2022-07-23] MEDS: ACETAMINOPHEN 500 MG TAB PO SCH ×2 (05:41→12:53)
[2022-07-23] MEDS: SODIUM CHLORIDE 0.9% 1000ML 1,000 ML IV SCH (05:45)
--- NOTE | 2022-07-23 07:46 | Orthopedic Progress Note ---
Date of Service July 23, 2022 Assessment & Plan (1) Rotator cuff arthropathy of left shoulder: Plan: Postop day #1 left reverse total shoulder arthroplasty -Pain management as written -PT/OT: No shoulder range of motion. May do elbow/wrist/hand motion, shrugs, p endulums -DVT prophylaxis: SCDs -A.m. labs are pending -Discharge planning: Plan on discharge home. Possible discharge today. We will recheck later today and if doing well likely discharge. Admission and Anticipated Discharge Date Admission Date: July 22, 2022 Subjective Patient is seen this morning. He was sitting in bedside chair. His Hemovac drain had become disconnected apparently while he is getting out of bed. Currently has complaints of pain. Denies chest pain, shortness of breath, nausea/vomiting/diarrhea. Review of Systems Review of Systems: All systems reviewed & are unremarkable except as noted in Subjective Physical Exam Physical Exam: Left shoulder: Dressing is clean, dry, intact. Sling is in place. There is blood on the front of patient's count as well as all over the floor due to Hemovac becoming disconnected. Fingers are mobile. Distally neurovascular status and sensation intact. Constitutional: WD/WN, vitals as above Results & Data ([facility]) Vital Signs (Past 12 Hours) Vital Signs Temp Pulse Resp BP Pulse Ox O2 Del Method O2 Flow Rate 07/23/22 02:29 36.9 C 82 20 142/77 H 94 Room Air 07/22/22 23:10 36.8 C 94 H 20 113/67 94 Nasal Cannula 2 07/22/22 21:29 36.4 C L 95 H 20 132/70 95 Nasal Cannula 2 07/22/22 20:32 36.4 C L 91 H 18 124/69 95 Nasal Cannula 2
[2022-07-23 08:01] LABS: Basophils # (auto) 0.03 K/uL (0-0.2); Basophils % (auto) 0.2 %; Hematocrit (blood only) 38.9 % (40.1-51.0); Hemoglobin 13.6 g/dl (14.0-18.0); Immature Granulocytes # (auto) 0.11 K/uL (0.00-0.02); Immature Granulocytes % (auto) 0.6 %; Lymphocytes # (auto) 0.66 K/uL (1.2-3.4); Lymphocytes % (auto) 3.7 %; Mean Corpuscular Hemoglobin 35.1 pg (25.0-34.0); Mean Corpuscular Volume 100.3 fL (80.0-100.0); Mean Platelet Volume 10.1 fL (9.4-12.4); Monocytes # (auto) 1.38 K/uL (0.24-0.82); Monocytes % (auto) 7.8 %; Neutrophils # (auto) 15.59 K/uL (1.4-6.5); Neutrophils % (auto) 87.7 %; Platelet Count 255 K/uL (130-400); RDW Coefficient of Variation 11.9 % (11.5-14.5); RDW Standard Deviation 44.4 fL (36.4-46.3); Red Blood Count 3.88 M/uL (4.63-6.08); White Blood Count 17.77 K/ul (4.8-10.8)
[2022-07-23 08:29] LABS: BUN Creatinine Ratio 17.7 (10-20); Calcium 9.2 mg/dl (8.5-10.1); Creatinine Clr Calc Pharmacy 62.7 ml/min; Est GFR (African American) 74.8 ml/min; Est GFR (Non-African American) 64.6 ml/min; Potassium 4.1 mmol/L (3.5-5.1)
[2022-07-23] MEDS: DOCUSATE SODIUM 100 MG CAP PO SCH (08:46)
[2022-07-23] MEDS: ceFAZolin 2000MG 2,000 MG/15 ML SYR IV SCH (08:50)
[2022-07-23] MEDS ORDERED: LEVOTHYROXINE SODIUM 50 MCG TABLET PO SCH (09:00)
[2022-07-23] MEDS ORDERED: MULTIVITAMIN TAB PO SCH (09:00)
--- NOTE | 2022-07-23 12:13 | Hospitalist Consultation ---
Date of Consultation July 23, 2022 Assessment & Plan (1) Benign essential hypertension: Currently stable. Continue current medical management (2) Hypothyroidism: Stable. Continue thyroid replacement as needed (3) Hypercholesterolemia: Stable. Low-cholesterol diet (4) COPD, mild: Stable. Nebulizers if needed (5) Chronic GERD: Continue PPI therapy (6) Hemochromatosis: Aware. No treatment necessary at this time (7) Rheumatoid arthritis: Stable. The patient takes methotrexate weekly Plan Medically stable for discharge home today, July 23, per orthopedic surgery. History of Present Illness Reason for Consultation: Medical management Requesting Physician: Dr. Cordova Attending Physician: Keith Mason MD History of Present Illness 72-year-old male who underwent left shoulder arthroplasty yesterday, July 22. He was seen today prior to discharge and is medically stable. Vital signs are stable and labs are unremarkable. He is medically stable for discharge today in my opinion Allergies Allergy/AdvReac Type Severity Reaction Status Date / Time adhesive Allergy Mild Skin Verified 07/22/22 12:04 tearing oxycodone AdvReac Intermediate severe Verified 07/22/22 12:28 nausea pseudoephedrine AdvReac Intermediate Passed out Verified 07/22/22 12:04 Home Medications Medication Instructions Recorded Confirmed Type esomeprazole magnesium 20 mg 20 mg PO HS 08/11/19 07/22/22 History capsule,delayed release (Nexium 24HR) triamcinolone acetonide 0.1 % 1 appln topical BID PRN itch #454 11/04/19 07/22/22 Rx topical cream grams naproxen sodium 220 mg tablet 440 mg PO HS PRN pain 05/23/20 07/22/22 History (Aleve) folic acid 1 mg tablet 1 mg PO HS 05/27/22 07/22/22 History levothyroxine 50 mcg tablet 50 mcg PO QAM 05/27/22 07/22/22 History (Synthroid) lisinopril 20 mg tablet (Zestril) 20 mg PO HS 05/27/22 07/22/22 History methotrexate sodium 2.5 mg tablet 15 mg PO Q7D 05/27/22 07/22/22 History acetaminophen 500 mg tablet 1,000 mg PO Q8 #60 tabs 07/23/22 Rx (Tylenol Extra Strength) hydromorphone 2 mg tablet 2 mg PO Q6H PRN pain #30 tabs 07/23/22 Rx (Dilaudid) Patient History Medical History Benign essential hypertension Chronic GERD COPD, mild Well controlled Hemochromatosis Intermittent theurapeutic phlebotomy (monthly) [facility] Hypercholesterolemia Hypothyroidism Rheumatoid arthritis MTX weekly Surgical History History of hand surgery R/L History of hip surgery R/L Left SANDY (12/17/17): SAB at L2/3 at [facility]. No issues noted per post-op anesthesia progress note. History of shoulder surgery RIGHT History of tooth extraction Family History Father Alcoholism Mother Breast cancer Social History Smoking Status: Former smoker Age Started Using Tobacco: 8; Smoking End Date: 20 yrs ago; Number of Years Since Quit: 20; Second Hand Exposure: No; Do You Dip or Chew Tobacco: No; Tobacco Cessation Education Requested by Patient: No Hx Alcohol Use: No Hx Substance Use: No Preferred Language: Ghanaian Communication Ability: Effective Visual Impairment: Blindness Hearing Ability: Use of Hearing Aid Operating Room Tech Required: No Beliefs That Will Affect Care: None marital status: Current Living Situation: Spouse Current Living Situation Comment: lives with spouse current occupational status: retired Other Information That Helps Us Care for You: No Feels Safe at Home: Yes Safety Concerns: Feels Safe At This Time Childhood Exposure to Second-Hand Smoke: No caffeine: Yes Dental Care, Regularly: No Physical Activity Frequency: 3-4 Times per Week Physical Activity Frequency Comment: walking Seatbelt Use: never Sunscreen Use: No Assistive Devices: Cane Review of Systems Review of Systems: Constitutional-no fever or chills ENT-no blurred vision, no double vision, no epistaxis, no sore throat Respiratory-no cough, no wheezing, no shortness of breath Cardiac-no palpitations, no chest pain, no syncope GI-no nausea, vomiting, diarrhea, melena, hematochezia -no urinary retention, no urinary incontinence, no dysuria, no hematuria Musculoskeletal-left shoulder immobilized after recent surgery Skin-no bruising, no rashes, no pruritus Neuro-no isolated weakness, no paresthesia, no weakness Psych-no depression, no anxiety Physical Exam Physical Exam: General-alert and oriented x3, no fevers, no chills HEENT-head atraumatic and normocephalic, pupils equal and reactive to light, extraocular muscles intact Neck-no lymphadenopathy or thyromegaly, trachea midline Chest-clear to auscultation percussion. No rales wheezing or rhonchi Cardiac-regular rate and rhythm, normal S1 and S2, no murmurs Abdomen-normal bowel sounds, nontender, no hepatosplenomegaly Extremities- left shoulder immobilized after surgery. No peripheral edema Neuro-cranial nerves II through XII intact, motor and sensory function within normal limits, strength symmetrical , no focal deficits Psych-normal affect, normal mood Results & Data Results & Data ([facility]) Vital Signs (Past 12 Hours) Vital Signs Temp Pulse Pulse Resp BP Pulse Ox O2 Del Method 07/23/22 08:00 36.8 C 95 H 16 139/70 94 Room Air 07/23/22 02:29 36.9 C 82 20 142/77 H 94 Room Air Laboratory Results 07/23/22 07:42 07/23/22 07:42 PG Care Time/CCT Total # of Minutes Spent Total Time Spent with Patient: Total time spent is greater than 50% in coordination of care (as documented) at patient's floor/unit and/or counseling patient: Coding Level of Care Code 16115 Inpt Consult Level 3 Diagnoses Benign essential hypertension I10 Hypothyroidism E03.9 Hypercholesterolemia E78.00 COPD, mild J44.9 Chronic GERD K21.9 Hemochromatosis E83.119 Rheumatoid arthritis M06.9
[2022-07-23] MEDS ORDERED: lisinopril 20 MG TAB PO SCH (21:00)
--- NOTE | 2022-07-24 07:15 | Discharge Summary ---
Date of Service July 24, 2022 Admission HPI Per Admitting Provider 72-year-old male with past medical history significant for COPD, hypothyroidism, Rheumatoid arthritis, hemochromatosis who presents with ongoing left shoulder pain. Pain is interfering with his daily activities. He has failed conservative measures. He would like to proceed with surgical intervention. Patient denies headaches, sweats, fevers, chills, double vision, blurred vision, cough, sore throat, dysphagia, chest pain, sob, wheezing, n/v/d/c, numbness, tingling, fatigue, urinary symptoms, mood disorders. ROS positive for Left shoulder pain and stiffness Admission Exam Per Admitting Provider Constitutional: well developed and well nourished; no acute distress Eyes: PERRL, conjunctivae normal, anicteric sclerae ENMT: external ear and nose normal, oropharynx normal Neck: trachea midline, no thyromegaly Respiratory: normal respiratory effort, lungs clear to auscultation Cardiovascular: RRR, no murmur, no edema Musculoskeletal: Left shoulder:Crepitus with range of motion. Tenderness anterolateral acromion. Positive impingement signs. Pain with resistive abduction isolating supraspinatus and moderate weakness Isolating supraspinatus. Forward flexion to 110 degrees, abduction to 160 degrees, external rotation at 90 degrees. Skin: no rashes, warm and dry Neurologic: patellar DTR's 2+ bilat, sensation intact Psychiatric: A+Ox3, euthymic affect Principal Diagnosis Left shoulder rotator cuff arthropathy Discharge Exam Left shoulder: Dressing is clean, dry, intact. Sling is in place. There is bl ood on the front of patient's count as well as all over the floor due to Hemovac becoming disconnected. Fingers are mobile. Distally neurovascular status and sensation intact. Constitutional WD/WN, vitals as above Discharge Data Allergies Allergy/AdvReac Type Severity Reaction Status Date / Time adhesive Allergy Mild Skin Verified 07/22/22 12:04 tearing oxycodone AdvReac Intermediate severe Verified 07/22/22 12:28 nausea pseudoephedrine AdvReac Intermediate Passed out Verified 07/22/22 12:04 Consultations 07/18/22 14:08 Consult Hospitalist Routine Procedures Performed Operation Date: 07/18/22 14:00 <No data on this case meets the specified criteria> Operation Date: 07/22/22 14:05 Actual Procedures p Left Reverse Total Shoulder Arthroplasty(Left) - Keith Mason MD Ordered Studies 07/22/22 05:00 US - OR guided needle placemen Routine Hospital Course (1) Rotator cuff arthropathy of left shoulder: Postop day #1 left reverse total shoulder arthroplasty -Pain management as written -PT/OT: No shoulder range of motion. May do elbow/wrist/hand motion, shrugs, pendulums -DVT prophylaxis: SCDs -A.m. labs are pending -Discharge planning: Plan on discharge home. Possible discharge today. We will recheck later today and if doing well likely discharge. Addendum: Patient rechecked this afternoon. Pain is controlled. Continues to discuss some residual numbness in his hand which is slowly resolving. Patient was slightly confused over certain activities today including Dr. Giron's visit. Patient felt that he saw Dr Mason at the [facility] this morning. States that he ran into him and said that he was coming to the hospital. Patient does remember the date. He appears to know he is at the hospital in [place]. He does not know who the president is. I discussed this with Dr. Tucker who saw the patient later this morning. He felt that he had some slight confusion may be secondary to medications etc. and felt that if he was admitted, he might worsen. He felt if the patient was stable that he can be discharged. I returned to see the patient at 1540 and discussed discharge with patient and his . His felt that the patient was doing okay and that she would be able to manage him at home. Patient states that he had no new complaints since I last saw him earlier in the day. He is pleasant and cooperative. Plan for discharge to home. Lab Results 07/22/22 07/22/22 07/23/22 Range/Units Unknown Unknown 07:42 WBC 17.77 H (4.8-10.8) K/ul RBC 3.88 L (4.63-6.08) M/uL Hgb 13.6 L (14.0-18.0) g/dl Hct 38.9 L (40.1-51.0) % MCV 100.3 H (80.0-100.0) fL MCH 35.1 H (25.0-34.0) pg MCHC 35.0 (32.0-36.0) g/dL RDW Std Deviation 44.4 (36.4-46.3) fL RDW Coeff of Randy 11.9 (11.5-14.5) % Plt Count 255 (130-400) K/uL MPV 10.1 (9.4-12.4) fL Immature Gran % (Auto) 0.6 % Neut % (Auto) 87.7 % Lymph % (Auto) 3.7 % [place] % (Auto) 7.8 % Eos % (Auto) 0.0 % Baso % (Auto) 0.2 % Neut # (Auto) 15.59 H (1.4-6.5) K/uL Lymph # (Auto) 0.66 L (1.2-3.4) K/uL [place] # (Auto) 1.38 H (0.24-0.82) K/uL Eos # (Auto) 0.00 (0-0.50) K/uL Baso # (Auto) 0.03 (0-0.2) K/uL Immature Gran # (Auto) 0.11 H (0.00-0.02) K/uL Sodium (136-145) mmol/L Potassium (3.5-5.1) mmol/L Chloride (98-107) mmol/L Carbon Dioxide (21-32) mmol/L Anion Gap (3-11) BUN (6-23) mg/dl Creatinine (0.6-1.4) mg/dl Est Cr Clr Drug Dosing ml/min Est GFR ( Amer) ml/min Est GFR (Non-Af Amer) ml/min BUN/Creatinine Ratio (10-20) Glucose (70-99(Fasting)) mg/dl Calcium (8.5-10.1) mg/dl SARS-CoV-2, RNA, NAAT Cancelled NEGATIVE 07/23/22 Range/Units 07:42 WBC (4.8-10.8) K/ul RBC (4.63-6.08) M/uL Hgb (14.0-18.0) g/dl Hct (40.1-51.0) % MCV (80.0-100.0) fL MCH (25.0-34.0) pg MCHC (32.0-36.0) g/dL RDW Std Deviation (36.4-46.3) fL RDW Coeff of Randy (11.5-14.5) % Plt Count (130-400) K/uL MPV (9.4-12.4) fL Immature Gran % (Auto) % Neut % (Auto) % Lymph % (Auto) % [place] % (Auto) % Eos % (Auto) % Baso % (Auto) % Neut # (Auto) (1.4-6.5) K/uL Lymph # (Auto) (1.2-3.4) K/uL [place] # (Auto) (0.24-0.82) K/uL Eos # (Auto) (0-0.50) K/uL Baso # (Auto) (0-0.2) K/uL Immature Gran # (Auto) (0.00-0.02) K/uL Sodium 137 (136-145) mmol/L Potassium 4.1 (3.5-5.1) mmol/L Chloride 104 (98-107) mmol/L Carbon Dioxide 24 (21-32) mmol/L Anion Gap 9 (3-11) BUN 20 (6-23) mg/dl Creatinine 1.13 (0.6-1.4) mg/dl Est Cr Clr Drug Dosing 62.7 ml/min Est GFR ( Amer) 74.8 ml/min Est GFR (Non-Af Amer) 64.6 ml/min BUN/Creatinine Ratio 17.7 (10-20) Glucose 164 H (70-99(Fasting)) mg/dl Calcium 9.2 (8.5-10.1) mg/dl SARS-CoV-2, RNA, NAAT Total Time Total Time Spent Total Time Spent (In Minutes): 20 Discharge Plan Discharge Items Patient Disposition: Home - Self-Care Reason For Visit: Left Shoulder Rotator Cuff Arthroplasty Discharge Diagnosis: Left shoulder rotator cuff arthropathy Activity: Per Instructions section Non-emergency contact: Surgeon Call non-emergency contact if: you have any medication questions, your pain is not controlled, your pain is concerning for you, you have a fever, your temperature is above 101, your wound has increased redness and your wound has increased drainage Follow-up/Referrals: Max Pagan MD [Primary Care Provider] - 07/29/22 9:45 am (with Dr. Mcgregor) Diet: Regular Addtl Attending Provider Instructions: ACTIVITY RECOMMENDATIONS: SELF CARE INSTRUCTIONS AFTER TOTAL SHOULDER ARTHROPLASTY REVERSE A. You may do daily exercises as taught in physical therapy while in hospital. No lifting with the operative arm. B. You are to wear your sling/immobilizer at all times EXCEPT when performing your daily exercises and for hygiene purposes. C. You may perform dry, daily dressing changes. Please keep your incision covered. You may shower 48 hours after surgery. Do not apply soap or any ointment/lotions directly over incision. Do not soak incision in bath tub/swimming pool. D. You may use ice as needed to operative shoulder. SPECIAL CARE INSTRUCTIONS: VERY IMPORTANT TO READ AND REVIEW A. There are a few signs you need to watch for after you are home. Call [facility] at [phone] if you experience any of the followin. Increased severe shoulder pain. Some pain is expected especially when you exercise. 2. Increased swelling in you shoulder or arm; pain or swelling in either upper extremity. 3. Any fluid drainage from the incision. 4. Shortness of breath or chest pain. B. Please call [facility] at [phone] if you have any questions or concerns about your operation or recovery. C. Call your physician if: 1. Temperature is greater than 101 degrees (F). 2. Pain is not relieved by prescribed pain medications. 3. Increase drainage or redness from incision. 4. Unanswered questions or concerns. You may resume your Methotrexate 2 weeks post operatively. FOLLOW UP VISIT: Please call [facility] at [phone] to schedule a follow up appointment with Dr. Mason or his PA in 12-14 days from your surgery date. Stand-Alone Forms: [employer], Smoking Cessation Medications and DC Order Prescriptions: New acetaminophen [Tylenol Extra Strength] 500 mg Tablet 1,000 mg PO Q8 Qty: 60 0RF hydromorphone [Dilaudid] 2 mg Tablet 2 mg PO Q6H PRN (Reason: pain) Qty: 30 0RF Rx Instructions: Ongoing therapy, Dr. Mason supervising Continued esomeprazole magnesium [Nexium 24HR] 20 mg capsule,delayed release(DR/EC) 20 mg PO HS triamcinolone acetonide 0.1 % cream 1 appln TOP BID PRN (Reason: itch) Qty: 454 2RF lisinopril [Zestril] 20 mg tablet 20 mg PO HS levothyroxine [Synthroid] 50 mcg tablet 50 mcg PO QAM folic acid 1 mg tablet 1 mg PO HS Discontinued naproxen sodium [Aleve] 220 mg tablet 440 mg PO HS PRN (Reason: pain) methotrexate sodium 2.5 mg tablet 15 mg PO Q7D Rx Instructions: on Fri- 4 tabs in am and 4 tabs in evening per patient Discharge Orders: Discharge Order (Routine); Ordered 07/23/22 Ordered By: Jayme Colon Admission Data Admit Date/Time: 07/22/22 17:51 Attending Provider: Keith Mason Admit Provider: Keith Mason Primary Care Provider: Max Pagan Other Providers: Issa Zimmerman Robert R. Other Interventions: Discharge Summary Assessment (RN) Last Done: 07/23/22 16:01
== END 2022-07-23 17:12 | disposition home or self-care (01) ==
LOC: ASU 11:24 → 3N 17:51 → INTOOBSV 17:51
DX: Z88.8 Allergy status to other drugs, medicaments and biological substances; I10 Essential (primary) hypertension; K21.9 Gastro-esophageal reflux disease without esophagitis; M75.22 Bicipital tendinitis, left shoulder; Z88.5 Allergy status to narcotic agent; M06.9 Rheumatoid arthritis, unspecified; Z91.048 Other nonmedicinal substance allergy status; E78.00 Pure hypercholesterolemia, unspecified; Z79.890 Hormone replacement therapy; Z87.891 Personal history of nicotine dependence; E83.119 Hemochromatosis, unspecified; J44.9 Chronic obstructive pulmonary disease, unspecified; E03.9 Hypothyroidism, unspecified; M75.102 Unspecified rotator cuff tear or rupture of left shoulder, not specified as traumatic